=== PATIENT | female | born 1985 | race Caucasian/White ===

== ENCOUNTER 2016-06-16 23:10 | Observation (INO) | payer MEDICAID, OTHER ==
[~2016-06-16] VITALS: Ht 162.6 cm; Wt 95.0 kg
[2016-06-16 23:13] VITALS: BP 97/55; PULSE 85; RESP 16; TEMP 98; O2SAT 98
[2016-06-16] MEDS ORDERED: SODIUM CHLOR 0.9% 1000 ML INJ 1,000 ML IV ONE (23:30)
[2016-06-16 23:40] VITALS: RESP 15; O2SAT 100
[2016-06-16 23:45] VITALS: BP 99/56; PULSE 86; RESP 17; O2SAT 100
[2016-06-16 23:52] LABS: BASOPHIL % 0.4 % (0.0-2.0); EOSINOPHIL # 0.1 TH/MM3 (0-0.4); EOSINOPHIL % 1.6 % (0.0-4.0); HEMATOCRIT 31.5 % (35.0-46.0); HEMO FLAGS DIFF FINAL; LYMPH % 19.9 % (9.0-44.0); LYMPHOCYTE # 1.6 TH/MM3 (1.0-4.8); MEAN CELL VOLUME 81.1 FL (80.0-100.0); MEAN CORPUSCULAR HEMOGLOBIN 27.3 PG (27.0-34.0); MEAN CORPUSCULAR HGB CONC 33.7 % (32.0-36.0); MONO % 5.3 % (0.0-8.0); NEUT % 72.8 % (16.0-70.0); PLATELET COUNT 234 TH/MM3 (150-450); RED BLOOD COUNT 3.88 MIL/MM3 (4.00-5.30); RED CELL DISTRIBUTION WIDTH 13.3 % (11.6-17.2); WHITE BLOOD COUNT 8.3 TH/MM3 (4.0-11.0)
[2016-06-16 23:59] LABS: PROTHROMBIN TIME - PATIENT 11.4 SEC (9.8-11.6)
[2016-06-17] VITALS (10 sets, daily range): BP systolic 75–121; BP diastolic 40–69; PULSE 65–79; RESP 13–21; TEMP 97.5–98.6; O2SAT 97–100
--- NOTE | 2016-06-17 00:07 | PD ---
HPI Chief Complaint: Syncope/Near-Syncope Time Seen by Provider: 23:16 Travel History International Travel<30 days: No Contact w/Intl Traveler<30days: No Traveled to known affect area: No History of Present Illness HPI The patient is a 31 year old female who presents to the [facility] emergency department with a history of syncopal event that occurred prior to arrival. The patient reports that she is currently on vacation. She did have one alcoholic beverage this evening and a few sips of another and had just started eating dinner when she suddenly began to feel lightheaded and passed out. When she awoke people were standing around her and she was diaphoretic. She had another syncopal event for a few seconds. The patient was brought in by ambulance services. The patient's blood sugar was reportedly normal. The patient reports that she has been eating regularly throughout the day today. She does have a history of syncope previously that has been diagnosed as vasovagal syncope related to blood. She denies any illness recently. She denies any recent vomiting or diarrhea. She denies having any lower extremity edema, calf pain, or erythema. She denies having any chest pain, chest pressure , or shortness of breath. The patient denies any recent fevers, cough, congestion, neck pain, abdominal pain, urinary symptoms, or other neurologic symptoms. LMP: 3 weeks ago PFSH Past Medical History Narrative Medical The patient's past medical history is reportedly none. Heart Rhythm Problems: Yes (PALPITATIONS) Cardiovascular Problems: Yes (PALPITATIONS) Medical other: Yes (SEIZURE AGE 3) ?: Not Past Surgical History Narrative Surgical The patient's past surgical history is reportedly none. Surgical History: No Previous Surgery Social History Alcohol Use: Yes (occasional) Tobacco Use: Yes (social) Substance Use: No Allergies-Medications (Allergen,Severity, Reaction): Coded Allergies: No Known Allergies (Unverified , 06/16/16) Reported Meds & Prescriptions Reported Meds & Active Scripts Active Review of Systems Except as stated in HPI: all other systems reviewed are Neg General / Constitutional: No: Fever Eyes: No: Visual changes HENT: Positive: Lightheadedness, No: Headaches Cardiovascular: Positive: Diaphoresis, Syncope, No: Chest Pain or Discomfort, Dyspnea on exertion Respiratory: No: Shortness of Breath Gastrointestinal: No: Nausea, Vomiting, Diarrhea, Abdominal Pain, Changes in Bowel Habits, Indigestion, Loss of Appetite Genitourinary: No: Urgency, Frequency, Dysuria, Flank Pain Musculoskeletal: No: Pain Skin: No Rash Neurologic: Positive: Weakness (generalized weakness), Syncope, No: Focal Abnormalities, Seizures, Sensory Disturbance Psychiatric: No: Depression Endocrine: No: Polydipsia Hematologic/Lymphatic: No: Easy Bruising Physical Exam Narrative General: The patient is a well-developed well-nourished female in no acute distress. Head and Neck exam: Head is normocephalic atraumatic. Eyes: EOMI, pupils are equal round and reactive to light. Nose: Midline septum with pink mucous membranes Mouth: Dentition unremarkable. Moist mucus membranes. Posterior oropharynx is not erythematous. No tonsillar hypertrophy. Uvula midline. Airway patent. No evidence of trauma to the tongue. Neck: No palpable lymphadenopathy. No nuchal rigidity. No thyromegaly. Cardiovascular: Regular rate and rhythm without murmurs, gallops, or rubs. No pulse deficit to the extremities and simultaneous auscultation and palpation of her radial artery. Lungs: Clear to auscultation bilaterally. No wheezes, rhonchi, or rales. Abdomen: Soft, without tenderness to palpation in all 4 quadrants of the abdomen. No guarding, rebound, or rigidity. Bowel sounds are audible. No tenderness on palpation of McBurney's point. Extremities: No clubbing, cyanosis, or edema. 2+ pulses in all 4 extremities. No calf tenderness on palpation. Back: No spinous process tenderness to palpation. No costovertebral angle tenderness to palpation. Neurologic Exam: Cranial nerves 2-12 were intact on exam. Strength is 5/5 in all 4 extremities. No sensory deficits noted. Skin Exam: No rash noted. Intact skin that is warm and dry. Data Data Last Documented VS Vital Signs Date Time Temp Pulse Resp B/P Pulse Ox O2 Delivery O2 Flow Rate FiO2 06/17/16 03:47 69 20 88/52 100 06/16/16 23:40 Room Air 06/16/16 23:13 98.0 Orders Electrocardiogram (06/16/16 23:17) Complete Blood Count With Diff (06/16/16 23:17) Comprehensive Metabolic Panel (06/16/16 23:17) Creatine Kinase (Cpk) (06/16/16 23:17) Ckmb (Isoenzyme) Profile (06/16/16 23:17) Troponin I (06/16/16 23:17) B-Type Natriuretic Peptide (06/16/16 23:17) Prothrombin Time / Inr (Pt) (06/16/16 23:17) Lipase (06/16/16 23:17) Urinalysis - C+S If Indicated (06/16/16 23:17) D-Dimer (06/16/16 23:17) Magnesium (Mg) (06/16/16 23:17) Thyroid Stimulating Hormone (06/16/16 23:17) Chest, Single Ap (06/16/16 23:17) Ct Brain W/O Iv Contrast(Rout) (06/16/16 23:17) Iv Access Insert/Monitor (06/16/16 23:17) Ecg Monitoring (06/16/16 23:17) Oximetry (06/16/16 23:17) Ed Urine Pregnancytest Poc (06/16/16 23:17) Drug Screen, Random Urine (06/16/16 23:17) Alcohol (Ethanol) (06/16/16 23:17) Sodium Chlor 0.9% 1000 Ml Inj (Ns 1000 M (06/16/16 23:30) Westergren Sedimentation Rate (06/16/16 23:39) Orthostatic Vital Signs (06/17/16 00:07) Sodium Chlor 0.9% 1000 Ml Inj (Ns 1000 M (06/17/16 02:00) Potassium Chloride Eff (K-Lyte Cl Eff) (06/17/16 09:00) Potassium Chloride Eff (K-Lyte Cl Eff) (06/17/16 09:00) Potassium Chloride Eff (K-Lyte Cl Eff) (06/17/16 02:12) Urine Culture (06/17/16 02:15) Labs Laboratory Tests Test 06/16/16 06/17/16 23:35 02:15 White Blood Count 8.3 TH/MM3 Red Blood Count 3.88 MIL/MM3 Hemoglobin 10.6 GM/DL Hematocrit 31.5 % Mean Corpuscular Volume 81.1 FL Mean Corpuscular Hemoglobin 27.3 PG Mean Corpuscular Hemoglobin 33.7 % Concent Red Cell Distribution Width 13.3 % Platelet Count 234 TH/MM3 Mean Platelet Volume 7.9 FL Neutrophils (%) (Auto) 72.8 % Lymphocytes (%) (Auto) 19.9 % Monocytes (%) (Auto) 5.3 % Eosinophils (%) (Auto) 1.6 % Basophils (%) (Auto) 0.4 % Neutrophils # (Auto) 6.0 TH/MM3 Lymphocytes # (Auto) 1.6 TH/MM3 Monocytes # (Auto) 0.4 TH/MM3 Eosinophils # (Auto) 0.1 TH/MM3 Basophils # (Auto) 0.0 TH/MM3 CBC Comment DIFF FINAL Differential Comment Erythrocyte Sedimentation Rate 24 mm/hr Prothrombin Time 11.4 SEC Prothromb Time International 1.0 RATIO Ratio D-Dimer Quantitative (PE/DVT) 0.31 MG/L FEU Sodium Level 144 MEQ/L Potassium Level 3.2 MEQ/L Chloride Level 110 MEQ/L Carbon Dioxide Level 23.9 MEQ/L Anion Gap 10 MEQ/L Blood Urea Nitrogen 14 MG/DL Creatinine 0.71 MG/DL Estimat Glomerular Filtration 96 ML/MIN Rate Random Glucose 80 MG/DL Calcium Level 8.1 MG/DL Magnesium Level 2.0 MG/DL Total Bilirubin 0.4 MG/DL Aspartate Amino Transf 11 U/L (AST/SGOT) Alanine Aminotransferase 17 U/L (ALT/SGPT) Alkaline Phosphatase 59 U/L Total Creatine Kinase 56 U/L Troponin I LESS THAN 0.02 NG/ML B-Type Natriuretic Peptide 17 PG/ML Total Protein 6.6 GM/DL Albumin 3.2 GM/DL Lipase 84 U/L Vitamin B12 Level 252 PG/ML Thyroid Stimulating Hormone 3.590 uIU/ML 3rd Gen Beta HCG, Qualitative LESS THAN 1 MIU/ML Ethyl Alcohol Level 5 MG/DL Urine Color LIGHT-YELLOW Urine Turbidity HAZY Urine pH 6.0 Urine Specific [place] 1.008 Urine Protein NEG mg/dL Urine Glucose (UA) NEG mg/dL Urine Ketones NEG mg/dL Urine Occult Blood NEG Urine Nitrite NEG Urine Bilirubin NEG Urine Urobilinogen LESS THAN 2.0 MG/DL Urine Leukocyte Esterase LARGE Urine RBC 1 /hpf Urine WBC 12 /hpf Urine Squamous Epithelial 5 /hpf Cells Urine Bacteria RARE /hpf Urine Hyaline Casts 1 /lpf Urine Mucus FEW /lpf Microscopic Urinalysis Comment CULTURE INDICATED MDM Medical Decision Making Medical Screen Exam Complete: Yes Emergency Medical Condition: Yes Medical Record Reviewed: Yes Interpretation(s) Last Impressions Head CT 06/16/162316 Signed Impressions: Service Date/Time: Friday, June 17, 2016 00:15 - CONCLUSION: 1. No acute intracranial abnormalities. Christopher Dunn MD Chest X-Ray 06/16/162316 Signed Impressions: Service Date/Time: Thursday, June 16, 2016 23:50 - CONCLUSION: No acute disease. Christopher Dunn MD Differential Diagnosis Vasovagal syncope, versus orthostasis, versus cardiac arrhythmia, versus acute coronary syndrome, versus intracranial abnormality Narrative Course During the course of the patients emergency department visit, the patients history, examination, and differential diagnosis were reviewed with the patient. The patient had IV access obtained and blood work sent for analysis. The patient was placed on a manager cardiac with oximetry and blood pressure monitoring. An EKG was done. The patient's EKG done on arrival shows a sinus rhythm of 78, evidence of early repolarization, no acute ST segment elevation or depression. Orthostatic vital signs were done. Orthostatic vital signs were unremarkable. The patient was provided normal saline 1 L IV fluid bolus. The patients laboratory studies were reviewed and remarkable for a CMP was remarkable for a potassium of 3.1 which was supplemented orally. Urinalysis reveals pyuria and evidence of urinary tract infection. The patient was persistently experiencing generalized weakness. The patient after a total of 3 L, 1 L by ambulance services 2 L of IV fluid in the emergency department the patient had persistent generalized weakness. The patient's blood pressure was 88/52. The patient will be continued on normal saline IV fluids and admitted for further evaluation of syncope. The patient had blood cultures added to her laboratory studies. A lactate was added to her laboratory studies. The patients results were discussed with the patient, including the plan of care. I explained that further testing and/ or monitoring is indicated based on the patients history, examination, and/ or laboratory findings. Therefore, I recommended admission for additional evaluation. The patient expressed understanding and was agreeable with this plan. The patient was admitted to the hospital in condition and [facility] Physician Communication Physician Communication The patient's case was discussed with Dr. Post who did agree to admit the patient for further evaluation and treatment at this time. Diagnosis Primary Impression: Syncope Qualified Code: R55 - Syncope, unspecified syncope type Additional Impressions: Dehydration Hypokalemia Admitting Information Admitting Physician Requests: Observation Referrals: Primary Care Physician 2 days Patient Instructions: General Instructions Xin Cueva MD Jun 17, 2016 00:07
[2016-06-17 00:09] LABS: ANION GAP 10 MEQ/L (5-15); AST (GOT) 11 U/L (15-37); BICARBONATE 23.9 MEQ/L (21.0-32.0); BLOOD UREA NITROGEN 14 MG/DL (7-18); CHLORIDE 110 MEQ/L (98-107); GLOMERULAR FILTRATION RATE 96 ML/MIN (>89); POTASSIUM 3.2 MEQ/L (3.5-5.1); SODIUM (NA) 144 MEQ/L (136-145)
[2016-06-17 00:18] LABS: ALKALINE PHOSPHATASE 59 U/L (45-117); ALT (GPT) 17 U/L (10-53); TOTAL BILIRUBIN ADULT 0.4 MG/DL (0.2-1.0)
[2016-06-17 00:20] LABS: CREATINE KINASE 56 U/L (26-192)
--- NOTE | 2016-06-17 00:44 | RADRPT ---
EXAM DATE/TIME: 06/16/2016 23:50 [facility] COMPARISON: No previous studies available for comparison. INDICATIONS : Syncope. Weakness. MEDICAL HISTORY : None. SURGICAL HISTORY : None. ENCOUNTER: Initial ACUITY: 1 day PAIN SCORE: 5/10 LOCATION: Bilateral chest FINDINGS: A single view of the chest demonstrates the lungs to be symmetrically aerated without evidence of mas s, infiltrate or effusion. The cardiomediastinal contours are unremarkable. Osseous structures are intact. CONCLUSION: No acute disease. Christopher Dunn MD on June 17, 2016 at 0:42 Board Certified Radiologist. This report was verified electronically.
--- NOTE | 2016-06-17 00:58 | RADRPT ---
EXAM DATE/TIME: 06/17/2016 00:15 [facility] COMPARISON: No previous studies available for comparison. INDICATIONS : Syncopal episode RADIATION DOSE: 37.33 CTDIvol (mGy) MEDICAL HISTORY : Seizures. Palpitations. SURGICAL HISTORY : None. ENCOUNTER: Initial ACUITY: 1 day PAIN SCALE: 0/10 LOCATION: Bilateral cranial TECHNIQUE: Multiple contiguous axial images were obtained of the head. Using automated exposure control and adj ustment of the mA and/or kV according to patient size, radiation dose was kept as low as reasonably a chievable to obtain optimal diagnostic quality images. FINDINGS: CEREBRUM: The ventricles are normal for age. No evidence of midline shift, mass lesion, hemorrhage or acute in farction. No extra-axial fluid collections are seen. POSTERIOR FOSSA: The cerebellum and brainstem are intact. The 4th ventricle is midline. The cerebellopontine angle i s unremarkable. EXTRACRANIAL: The visualized portion of the orbits is intact. SKULL: The calvaria is intact. No evidence of skull fracture. CONCLUSION: 1. No acute intracranial abnormalities. Christopher Dunn MD on June 17, 2016 at 0:53 Board Certified Radiologist. This report was verified electronically.
[2016-06-17] MEDS ORDERED: SODIUM CHLOR 0.9% 1000 ML INJ 1,000 ML IV ONE ×2 (02:00→06:00)
[2016-06-17] MEDS ORDERED: POTASSIUM CHLORIDE 25 MEQ EFFERVESCENT TAB PO ONE (02:12)
[2016-06-17 02:25] LABS: BACTERIA, URINE RARE /hpf; BLOOD, URINE NEG (NEG); COMMENT (UR) CULTURE INDICATED; CULTURE IF INDICATED CULTURE INDICATED; GLUCOSE,URINE NEG (NEG); HYALINE CAST, URINE 1 /lpf (RARE); KETONE, URINE NEG (NEG); MUCUS URINE FEW /lpf (OCC); NITRITE,URINE NEG (NEG); SQUAMOUS EPITHELIAL CELL URINE 5 /hpf (0-5); URINE COLOR LIGHT-YELLOW (YELLW/STRAW)
[2016-06-17] MEDS ORDERED: K-TA10TA PO (03:03)
[2016-06-17] MEDS ORDERED: MACR100C2 PO (03:03)
[2016-06-17] MEDS ORDERED: SODIUM CHLOR 0.9% 1000 ML INJ 1,000 ML IV SCH (04:52)
[2016-06-17] MEDS: SODIUM CHLOR 0.9% 1000 ML INJ 1,000 ML IV SCH ×2 (04:58→12:08)
[2016-06-17] MEDS ORDERED: SODIUM CHLORIDE 0.9% FLUSH 10 ML FLUSH IV FLUSH PRN (05:00)
[2016-06-17 06:33] LABS: BHCG SCREEN QUALITATIVE LESS THAN 1 MIU/ML (0-5)
--- NOTE | 2016-06-17 07:05 | HHI.HP ---
[facility] Service [facility] Primary Care Physician Non-Staff Admission Diagnosis Syncope, generalized weakness Diagnoses: Chief Complaint: Syncope Travel History International Travel<30 Days: No Contact w/Intl Traveler <30 Da: No Traveled to Known Affected Are: No History of Present Illness 31-year-old female history of vasovagal syncope due to site of blood, seizures as a 3-year-old, however none since, who presents with acute onset lightheadedness with syncope while eating dinner around 11 PM. She was eating lincoln-lincoln, and had about 5 bites, and between talking to other people, at which point she suddenly felt lightheaded, then passed out, sliding onto the floor. She woke up, sat up, then passed out again. She denies any chest pain, shortness of breath, palpitations, nausea, vomiting. She does say that she felt a little lightheaded until receiving fluids here in the ER. Her blood pressures here are in the 90s systolic, however she reports normal blood pressures for her are over 120 systolic. She denies any history of asthma or allergies. Denies taking any medications. She reports that the dinner conversation was nothing stressful. She is visiting here from her home near [place]. The right is about one half hours, however they took breaks. She denies any swelling in her extremities. Patient denies any family history of sudden . She reports otherwise feeling all right. Denies any fevers, chills, chest pain, shortness of breath, nausea, vomiting,, diarrhea, constipation. Eyes any vision loss or focal weakness. Review of Systems Performed and negative except for history of present illness and past medical history. Past Family Social History Past Medical History History of vasovagal syncope secondary to the site of blood History of seizures as a 3-year-old, none since Past Surgical History Patient denies any history of surgery Reported Medications Patient takes no medications. Allergies: Coded Allergies: No Known Allergies (Unverified , 06/16/16) Family History Patient reports father's family with history of Roque's, however father at age 50, without any signs. She continues to watch herself for signs of Roque's area Social History Patient is a nonsmoker. Drinks socially. Denies any illicit drugs. She does not take any [id number] medications. Physical Exam Vital Signs Vital Signs Date Time Temp Pulse Resp B/P Pulse Ox O2 Delivery O2 Flow Rate FiO2 06/17/16 06:08 70 19 94/53 100 06/17/16 05:40 65 18 91/56 100 06/17/16 05:10 79 21 75/40 100 06/17/16 03:47 69 20 88/52 100 06/17/16 01:59 95 16 113/58 110 14 115/58 86 13 121/63 06/16/16 23:45 86 17 99/56 100 06/16/16 23:40 15 100 Room Air 06/16/16 23:20 85 18 98 Room Air 06/16/16 23:13 98.0 85 16 97/55 98 Physical Exam GENERAL: This is a well-nourished, well-developed patient, in no apparent distress. Alert and oriented 3. She appears comfortable SKIN: No rashes, ecchymoses or lesions. Cool and dry. HEAD: Atraumatic. Normocephalic. No temporal or scalp tenderness. EYES: Pupils equal round and reactive. Extraocular motions intact. No scleral icterus. No injection or drainage. ENT: Nose without bleeding, purulent drainage or septal hematoma. Throat without erythema, tonsillar hypertrophy or exudate. Uvula midline. Airway patent. NECK: Trachea midline. No JVD or lymphadenopathy. Supple, nontender, no meningeal signs. CARDIOVASCULAR: Regular rate and rhythm without murmurs, gallops, or rubs. RESPIRATORY: Clear to auscultation. Breath sounds equal bilaterally. No wheezes , rales, or rhonchi. GASTROINTESTINAL: Abdomen soft, non-tender, nondistended. No hepato-splenomegaly , or palpable masses. No guarding. MUSCULOSKELETAL: Extremities without clubbing, cyanosis, or edema. No joint tenderness, effusion, or edema noted. No calf tenderness. Negative Homans sign bilaterally. NEUROLOGICAL: Awake and alert. Cranial nerves II through XII intact. Motor and sensory grossly within normal limits. Five out of 5 muscle strength in all muscle groups. Normal speech. Laboratory Laboratory Tests Test 06/16/16 06/17/16 06/17/16 23:35 02:15 05:10 White Blood Count 8.3 Red Blood Count 3.88 Hemoglobin 10.6 Hematocrit 31.5 Mean Corpuscular Volume 81.1 Mean Corpuscular Hemoglobin 27.3 Mean Corpuscular Hemoglobin 33.7 Concent Red Cell Distribution Width 13.3 Platelet Count 234 Mean Platelet Volume 7.9 Neutrophils (%) (Auto) 72.8 Lymphocytes (%) (Auto) 19.9 Monocytes (%) (Auto) 5.3 Eosinophils (%) (Auto) 1.6 Basophils (%) (Auto) 0.4 Neutrophils # (Auto) 6.0 Lymphocytes # (Auto) 1.6 Monocytes # (Auto) 0.4 Eosinophils # (Auto) 0.1 Basophils # (Auto) 0.0 CBC Comment DIFF FINAL Differential Comment Erythrocyte Sedimentation Rate 24 Prothrombin Time 11.4 Prothromb Time International 1.0 Ratio D-Dimer Quantitative (PE/DVT) 0.31 Sodium Level 144 Potassium Level 3.2 Chloride Level 110 Carbon Dioxide Level 23.9 Anion Gap 10 Blood Urea Nitrogen 14 Creatinine 0.71 Estimat Glomerular Filtration 96 Rate Random Glucose 80 Calcium Level 8.1 Magnesium Level 2.0 Total Bilirubin 0.4 Aspartate Amino Transf 11 (AST/SGOT) Alanine Aminotransferase 17 (ALT/SGPT) Alkaline Phosphatase 59 Total Creatine Kinase 56 Troponin I LESS THAN 0.02 B-Type Natriuretic Peptide 17 Total Protein 6.6 Albumin 3.2 Lipase 84 Vitamin B12 Level 252 Thyroid Stimulating Hormone 3.590 3rd Gen Beta HCG, Qualitative LESS THAN 1 Ethyl Alcohol Level 5 Urine Color LIGHT-YELLOW Urine Turbidity HAZY Urine pH 6.0 Urine Specific [place] 1.008 Urine Protein NEG Urine Glucose (UA) NEG Urine Ketones NEG Urine Occult Blood NEG Urine Nitrite NEG Urine Bilirubin NEG Urine Urobilinogen LESS THAN 2.0 Urine Leukocyte Esterase LARGE Urine RBC 1 Urine WBC 12 Urine Squamous Epithelial 5 Cells Urine Bacteria RARE Urine Hyaline Casts 1 Urine Mucus FEW Microscopic Urinalysis Comment CULTURE INDICATED Lactic Acid Level 0.9 Date/Time Procedure Status Source Growth 06/17/16 05:15 Aerobic Blood Culture Received Blood Peripheral Pending 06/17/16 05:15 Anaerobic Blood Culture Received Blood Peripheral Pending 06/17/16 02:15 Urine Culture Received Urine Clean Catch Pending Result Diagram: 06/16/16 2335 06/16/16 2335 Imaging Last Impressions Head CT 3/28/17 2317 Signed Impressions: Service Date/Time: Friday, June 17, 2016 00:15 - CONCLUSION: 1. No acute intracranial abnormalities. Christopher Dunn MD Chest X-Ray 06/16/162316 Signed Impressions: Service Date/Time: Thursday, June 16, 2016 23:50 - CONCLUSION: No acute disease. Christopher Dunn MD Assessment and Plan Assessment and Plan //Syncope x2 //Relative hypotension //Possible scombroid poisoning. -After eating f lincoln-lincoln. Possible scombroid poisoning. Respiratory involvement, however no history of asthma. -TSH normal. Lactate within normal limits -Anemia. She denies any bleeding. -Continue to monitor blood pressure -Orthostatic vitals. B12. Echocardiogram, Holter, cardiology consultation. //Anemia. Unknown chronicity. Likely chronic. No signs of acute bleeding. //Hypokalemia. Replaced. Magnesium normal. //Prophylaxis. SCDs. Code Status Full code Discussed Condition With Patient, nurse, family in room. Nacho Post MD Jun 17, 2016 07:05
[2016-06-17] MEDS ORDERED: NITROFURANTOIN MONOHYD MACROCR 100 MG CAP PO ONE (08:15)
[2016-06-17 08:39] LABS: AMPHETAMINE, URINE NEG (NEG); BARBITURATES, URINE NEG (NEG); COCAINE, URINE NEG (NEG)
[2016-06-17] MEDS ORDERED: POTASSIUM CHLORIDE 25 MEQ EFFERVESCENT TAB NG SCH ×2 (09:00)
[2016-06-17] MEDS ORDERED: SODIUM CHLORIDE 0.9% FLUSH 10 ML FLUSH IV FLUSH SCH (09:00)
--- NOTE | 2016-06-17 12:37 | MB ---
cc: BRENDA PINEDA M.D. DATE OF CONSULTATION: 06/17/2016 HISTORY OF PRESENT ILLNESS Taryn is a very pleasant 31-year-old lady who presents with a syncopal event. She has a history of syncope. She is here on vacation. She was drinking alcohol and eating dinner, began to feel lightheaded and had a syncopal event. She does not recall any associated shortness of breath or chest pain. She was noted to be diaphoretic when she woke up by bystanders. This was followed by a second syncopal event. Otherwise denies any fevers, chills, cough, GI or bleeding, PND, orthopnea. PAST MEDICAL HISTORY Past medical history includes: 1. Vasovagal syncope. 2. History of palpitations. 3. Seizure disorder diagnosed at age 3. SOCIAL HISTORY Drinks alcohol occasionally, smokes "socially". ALLERGIES None. MEDICATION Medications in the hospital: Potassium supplementation. PHYSICAL EXAMINATION VITAL SIGNS: Blood pressure 110/57, pulse 70, respiratory rate 18, temperature 97.5. She was noted to have a blood pressure of 75/40 at 05:10 a.m. this morning. GENERAL: She is alert and oriented x 3, in no acute distress. NECK: Supple. No JVD. No bruit. CARDIOVASCULAR: S1, S2. No murmurs, rubs or gallops. LUNGS: Clear to auscultation bilaterally. ABDOMEN: Soft, nontender, nondistended with positive bowel sounds. EXTREMITIES: No lower extremity edema. LABORATORY DATA White count 8.3, hemoglobin 10.6, hematocrit 31.5, ESR is 24. The Beta-hCG less than 1. Sodium 144, potassium 3.2, chloride 110, bicarb 23.9, BUN 14, creatinine 0.71, troponin is less than 0.02. Lactic acid is 0.9, INR is 1.0. Toxicology ethyl alcohol is 5, otherwise negative. IMAGING STUDIES Head CT shows no acute intracranial abnormalities. Chest x-ray shows no acute disease. EKG Normal sinus rhythm at 78 beats per minute, corrected QT interval 407 milliseconds, early repolarization. There is a repeat EKG that shows normal sinus rhythm, early repolarization, corrected QT interval of __13 milliseconds, otherwise normal. DIAGNOSIS 1. Syncope without prodrome. 2. Hypotension. 3. Tobacco use. DISCUSSION Recommend follow up 2-D echo and carotid ultrasound, continue telemetry monitoring. Suspect hypotension, possibly neurocardiogenic syncope and/or vasovagal reaction. Again, will follow up the 2-D echo and carotid ultrasound. Currently the patient is hemodynamically stable. I agree with potassium supplementation. MD JEREMIE Uribe/TLNimo /12:05 PM /12:18 PM
--- NOTE | 2016-06-17 13:53 | EC ---
Study Study Date:06/17/2016 STUDY CONCLUSIONS SUMMARY - Left ventricle: The cavity size was normal. Wall thickness was normal. Systolic function was normal. The estimated ejection fraction was in the range of 55% to 60%. Wall motion was normal; there were no regional wall motion abnormalities. - Tricuspid valve: Mild regurgitation. - Pulmonary arteries: PA peak pressure: 33mm Hg (S). If LV function is below 40, please consider prescribing an ACEI or ARB or document rationale for non-use. PROCEDURE DATA STUDY STATUS: Elective. Procedure: Transthoracic echocardiography. Image quality was good. Scanning was performed from the parasternal, apical, and subcostal acoustic windows. Study completion: The patient tolerated the procedure well. Transthoracic echocardiography. M-mode, complete 2D, complete spectral Doppler, and color Doppler. Patient status: Inpatient. CARDIAC ANATOMY LEFT VENTRICLE: The cavity size was normal. Wall thickness was normal. Systolic function was normal. The estimated ejection fraction was in the range of 55% to 60%. Wall motion was normal; there were no regional wall motion abnormalities. AORTIC VALVE: Trileaflet; normal thickness leaflets. Doppler: Transvalvular velocity was within the normal range. There was no stenosis. No regurgitation. Peak gradient: 10mm Hg (S). AORTA: Aortic root: The aortic root was normal in size. MITRAL VALVE: Structurally normal valve. Doppler: Transvalvular velocity was within the normal range. There was no evidence for stenosis. Trace regurgitation. Peak gradient: 3mm Hg (D). LEFT ATRIUM: The atrium was normal in size. RIGHT VENTRICLE: The cavity size was normal. Wall thickness was normal. PULMONIC VALVE: Doppler: Transvalvular velocity was within the normal range. There was no evidence for stenosis. No regurgitation. TRICUSPID VALVE: Structurally normal valve. Doppler: Transvalvular velocity was within the normal range. Mild regurgitation. PULMONARY ARTERY: The main pulmonary artery was normal-sized. Systolic pressure was within the normal range. RIGHT ATRIUM: The atrium was normal in size. PERICARDIUM: There was no pericardial effusion. SYSTEMIC VEINS: Inferior vena cava: The vessel was normal in size. BASIC MEASUREMENTS ADULT Normal Left ventricle LV internal dimension, ED, chordal level, *54.9 mm 43-52 PLAX LV internal dimension, ES, chordal level, *40.5 mm 23-38 PLAX Fractional shortening, chordal level, PLAX *26 % >29 LV posterior wall thickness, ED 7.56 mm IVS/LVPW ratio, ED 1.18 <1.3 Ventricular septum Septal thickness, ED 8.92 mm Aortic valve Leaflet separation 20 mm 15-26 Left atrium Anterior-posterior dimension 40 mm Right ventricle RV internal dimension, ED, PLAX 22.2 mm 19-38 BASIC MEASUREMENTS ADULT Normal Aortic valve Leaflet separation 20 mm 15-26 Aorta Root diameter, ED 29 mm 20-37 DOPPLER MEASUREMENTS ADULT Normal Main pulmonary artery Pressure, S *33 mm Hg =30 Aortic valve Peak velocity, S 159 cm/s Peak gradient, S 10 mm Hg Mitral valve Peak E-wave velocity 84.5 cm/s Peak A-wave velocity 70.2 cm/s Peak gradient, D 3 mm Hg Peak E/A ratio 1.2 Tricuspid valve Regurgitant peak velocity 265 cm/s Peak RV-RA gradient, S 28 mm Hg Maximal regurgitant velocity 265 cm/s Systemic veins Estimated CVP 5 mm Hg Right ventricle RV pressure, S *33 mm Hg <30 LEGEND: Mean values are shown as u=mean value. Asterisk (*) quick values outside specified normal range. Prepared and signed by Gurpreet Cueva [id number]
--- NOTE | 2016-06-17 14:34 | RADRPT ---
EXAM DATE/TIME: 06/17/2016 13:49 [place] COMPARISON: No previous studies available for comparison. INDICATIONS : Syncope. MEDICAL HISTORY : Syncope. SURGICAL HISTORY : Umbilical hernia repair. ENCOUNTER: Initial ACUITY: 1 day PAIN SCORE: 0/10 LOCATION: Bilateral neck PEAK SYSTOLIC VELOCITIES (cm/sec): ICA/CCA RATIO: Right: 1.0 Left: 0.6 ICA: Right: 104 Left: 94 CCA: Right: 106 Left: 148 ECA: Right: 108 Left: 112 VERTEBRAL: Right: 62 antegrade Left: 72 antegrade Elevated flow velocities and ICA/CCA ratios have been found to correlate with increased degrees of vessel stenosis, calculated as percentage of diameter relative to a normal segment of distal ICA/CCA FINDINGS: RIGHT CAROTID: No significant stenosis is visualized. The waveforms are within normal limits. LEFT CAROTID: No significant stenosis is visualized. The waveforms are within normal limits. VERTEBRAL ARTERIES: Antegrade flow is seen in both vertebral arteries. MISCELLANEOUS: None. CONCLUSION: 1. Patent carotid arteries bilaterally. 2. Antegrade flow involving both vertebral arteries. Luis Fernando Goncalves Jr., MD on June 17, 2016 at 14:30 Board Certified Radiologist. This report was verified electronically.
--- NOTE | 2016-06-17 14:45 | HHI.PR ---
Subjective Remarks Follow-up for syncope. Patient reports no acute events overnight. She denies any chest pain, shortness breath, lightheadedness, dizziness, palpitations. She 's been ambulating with no difficulties here. She is unsure why she passed out yesterday. She had eaten yesterday. She didn't consume any more alcohol than normal, just 2 sips prior to episode. Episodes are not related to position change. She had not been up later or had a longer day than normal. Patient is here on vacation. She does follow with a PCP [facility]. She feels comfortable and is pleased to go home today Objective Vitals Vital Signs Date Time Temp Pulse Resp B/P Pulse Ox O2 Delivery O2 Flow Rate FiO2 06/17/16 12:41 97.7 76 18 114/69 97 118/68 116/69 06/17/16 10:30 97.5 70 18 110/57 98 06/17/16 07:24 97.8 69 16 109/63 100 Room Air 06/17/16 07:20 81 17 100 Room Air 06/17/16 07:20 16 99 Room Air 06/17/16 06:08 70 19 94/53 100 06/17/16 05:40 65 18 91/56 100 06/17/16 05:10 79 21 75/40 100 06/17/16 03:47 69 20 88/52 100 06/17/16 01:59 95 16 113/58 110 14 115/58 86 13 121/63 06/16/16 23:45 86 17 99/56 100 06/16/16 23:40 15 100 Room Air 06/16/16 23:20 85 18 98 Room Air 06/16/16 23:13 98.0 85 16 97/55 98 I/O 06/16/16 06/16/16 06/16/16 06/17/16 06/17/16 06/17/16 07:00 15:00 23:00 07:00 15:00 23:00 Intake Total 180 ml Balance 180 ml Intake Oral 180 ml # Bowel Movements 0 Result Diagram: 06/16/16 9820 06/16/16 810 Other Results Personally reviewed telemetry today, no arrhythmias detected. Imaging Last Impressions Head CT 06/16/160 Signed Impressions: Service Date/Time: Friday, June 17, 2016 00:15 - CONCLUSION: 1. No acute intracranial abnormalities. Christopher Dunn MD Chest X-Ray 06/16/16 1473 Signed Impressions: Service Date/Time: Thursday, June 16, 2016 23:50 - CONCLUSION: No acute disease. Christopher Dunn MD Objective Remarks GENERAL: Well-developed well-nourished. In no acute distress. SKIN: Warm and dry. No lesions noted. HEENT: Normocephalic. Pupils equal and round. Mucous membranes pink and moist. CARDIOVASCULAR: Regular rate and rhythm. No murmur appreciated. RESPIRATORY: No accessory muscle use. Clear to auscultation. Breath sounds equal bilaterally. GASTROINTESTINAL: Abdomen soft, non-tender, nondistended. Bowel sounds x4. MUSCULOSKELETAL: No obvious deformities. No clubbing or cyanosis. No edema. NEUROLOGICAL: Awake and alert. No focal neurological deficits. Moves upper and lower extremities spontaneously. Normal speech. Strength 5/5. No cranial nerve deficits. PSYCHIATRIC: Appropriate mood and affect; insight and judgment normal. A/P Assessment and Plan 31-year-old female history of vasovagal syncope due to site of blood, seizures as a 3-year-old, however none since, who presented with acute onset lightheadedness with syncope while eating dinner //Syncope x2 //Relative hypotension Differential includes scombroid poisoning as episode occurred after eating [place] -TSH normal. Lactate within normal limits. B12 within normal limits. -Anemia, hemoglobin 10.6, normocytic. No bleeding. Suspect chronic. -BP improved with IVF, possible dehydration. Orthostatics negative -Echocardiogram showed normal systolic function with EF 5560%. -Holter monitor, can follow-up with PCP or cardiology for results, discuss with the patient -Cardiology consulted, suspect neurocardiogenic syncope and/or vasovagal reaction, recommended adding carotid ultrasound. Carotid arteries patent. //Hypokalemia. Potassium 3.2. Replaced. Magnesium normal. //Abnormal UA. No specific urinary complaints. 5 squamous epithelial cells. Suspect contaminant. -Monitor off antibiotics. -Follow up with PCP for final culture result. //Prophylaxis. SCDs. Discharge Planning Discharge patient to home Condition on discharge: Improved Regular Diet as tolerated Regular activity Rx written: Holter monitor Follow-up with primary care physician Bryson Herring Jun 17, 2016 14:45 Mily Sofia MD Jun 17, 2016 15:30
--- NOTE | 2016-06-17 19:59 | EKG ---
Date Performed: 06/17/2016 Time Performed: 07:51:11 PTAGE: 31 years EKG: Sinus rhythm EARLY REPOLARIZATION NORMAL ECG PREVIOUS TRACING : 06/16/2016 23.22 Compared to prior tracing no significant change DOCTOR: Leandra Addison Interpretating Date/Time 06/17/2016 19:59:28
--- NOTE | 2016-06-17 20:34 | EKG ---
Date Performed: 06/16/2016 Time Performed: 23:22:25 PTAGE: 31 years EKG: Sinus rhythm EARLY REPOLARIZATION BORDERLINE ECG NO PREVIOUS TRACING DOCTOR: Leandra Addison Interpretating Date/Time 06/17/2016 20:33:23
--- NOTE | 2016-06-17 23:31 | MG ---
cc: SARAH BARFIELD M.D. Sex: [id number] HISTORY: Syncope, alcohol, passed out. DESCRIPTION: Diffuse beta and alpha rhythms are noted. Some prominent alpha rhythms over the left posterior temporal head region at epoch seven. However, this is probably a normal variant. The patient goes into stage II sleep with normal symmetric stage II sleep. Photic stimulation was performed without significant posterior driving. Hyperventilation was performed without significant change in the background. IMPRESSION A slight asymmetry to the left posterior temporal head region probably normal for this patient, however. Otherwise unremarkable awake and stage II sleep recording. MD ALIREZA Everett/MAURICE /10:41 PM /11:16 PM
--- NOTE | 2016-06-19 16:35 | HM ---
Date Performed: 06/17/2016 Time Performed: 07:15:00 HOOKUP DATE: 06/17/16 07:15:00 AM Wed ANALYSIS START TIME: 06/17/2016 7:20:00 AM ANALYSIS END TIME: 06/18/2016 7:24:00 AM PATIENT AGE: 31 PATIENT HEIGHT PATIENT WEIGHT DRUG LIST PATIENT DIAGNOSIS: syncope TEST NARRATIVE: The patient's average heart rate was 74 BPM. Heart rates greater than 120 B PM were noted < 1% of the time. Heart rates less than 50 BPM were noted < 1% of the time. No juan ses exceeding 2.0 seconds were noted. No ventricular ectopics were noted. 9 supraventricular ectopics, which represented < 1% of the total beat count, were noted. The highest supraventricular e ctopic frequency occurred from 04:00 PM to 05:00 PM Wed. During this time 4 SVE(s) occurred. No episodes of ST depression (defined as -1.0 mm or more) were noted in channel 1. No episodes of ST de pression (defined as -1.0 mm or more) were noted in channel 2. No episodes of ST depression (defined as -1.0 mm or more) were noted in channel 3. PATIENT STATED "FATIGUE" DURING STUDY TEST INTERPRETATION: Holter monitor with underlying rhythm normal sinus. Occasional PACs with no significant PVCs. No atrial fibrillation noted. No pauses greater than 2 seconds presumably due to s leep at 0818 Conclusion: Benign holter, no evidence of significant arrhythmia such as atrial fibrilla tion. Occasional PACs noted and occasional short runs of sinus tachycardia, which appear to be normal . Signed by : Humberto Philip
== END 2016-06-17 17:33 | disposition home or self-care (01) ==
LOC: NEPE 23:10 → NEDA 06-17 04:44 → NEPHCDU 06-17 09:31
PROVIDERS: ADMIT Hospitalist; ATTEND Hospitalist
DX: R55 Syncope and collapse (principal); R61 Generalized hyperhidrosis; R00.2 Palpitations; N39.0 Urinary tract infection, site not specified; R53.1 Weakness; E86.0 Dehydration; E87.6 Hypokalemia; D64.9 Anemia, unspecified; I95.9 Hypotension, unspecified; Z72.0 Tobacco use
CPT/HCPCS: 70450; 71010; 80053; 80307; 81001; 82550; 82607; 83605; 83690; 83735; 83880; 84443; 84484; 84703; 85025; 85379; 85610; 85652; 87040; 87086; 93005; 93225; 93226; 93306; 93880; 95819; 96360; 96361; 99285; G0378; J7030